=== PATIENT | female | born 1935 | race Two or more races ===

== ENCOUNTER → 2017-07-14 | Outpatient (CLI) | payer OTHER | END | disposition home or self-care (01) | LOC: NUCLEAR 11:00 | DX: I11.9 Hypertensive heart disease without heart failure (principal); R07.89 Other chest pain; I44.0 Atrioventricular block, first degree ==

== ENCOUNTER → 2017-08-30 | Outpatient (CLI) | payer OTHER | END | disposition home or self-care (01) | LOC: NUCLEAR 08-28 14:30 | DX: M81.0 Age-related osteoporosis without current pathological fracture (principal) ==

== ENCOUNTER 2018-07-23 09:45 | Inpatient (IN) | payer OTHER ==
[~2018-07-23] VITALS: Ht 160 cm; Wt 57.6 kg
[2018-07-23] MEDS ORDERED: PROTONIX40 M1 PO (13:59)
[2018-07-23] MEDS ORDERED: LOSARTAN-HCTZ1 EAC2 PO (14:00)
[2018-07-23] MEDS ORDERED: ZOCOR PO (14:00)
[2018-07-23] MEDS ORDERED: PEPCID20 MG PO (14:01)
[2018-07-23] MEDS ORDERED: NAMENDA10 MG PO (15:58)
== END 2018-07-30 12:26 | disposition home or self-care (01) | DRG 331 ==
LOC: SURH 09:45 → O/R 07-27 06:00 → SURH 07-27 06:00
PROVIDERS: ADMIT Colon & Rectal Surgery
PROC: 07TB4ZZ Resection of Mesenteric Lymphatic, Percutaneous Endoscopic Approach (ICD-10-PCS; 2018-07-27)
PROC: 0DR Gastrointestinal System, Replacement (ICD-10-PCS; 2018-07-27)
PROC: 0T9B70Z Drainage of Bladder with Drainage Device, Via Natural or Artificial Opening (ICD-10-PCS; 2018-07-27)
PROC: 0DTF4ZZ Resection of Right Large Intestine, Percutaneous Endoscopic Approach (ICD-10-PCS; principal; 2018-07-27 09:00)
DX: C18.2 Malignant neoplasm of ascending colon (principal); I10 Essential (primary) hypertension; E87.6 Hypokalemia; E83.42 Hypomagnesemia; E83.39 Other disorders of phosphorus metabolism; R59.0 Localized enlarged lymph nodes

== ENCOUNTER 2019-04-25 14:22 | Outpatient (CLI) | payer OTHER ==
[~2019-04-25 14:22] MED LIST: LOSARTAN-HCTZ1 EAC2 PO; NAMENDA10 MG PO; PEPCID20 MG PO; PROTONIX40 M1 PO; ZOCOR PO
== END 2019-04-25 14:27 | disposition home or self-care (01) ==
LOC: NUCLEAR 14:22
DX: I87.2 Venous insufficiency (chronic) (peripheral) (principal)

== ENCOUNTER 2019-11-08 11:30 | Outpatient (CLI) | payer OTHER | END 2019-11-08 11:32 | disposition home or self-care (01) | LOC: NUCLEAR 11:30 | PROVIDERS: ATTEND Internal Medicine Cardiovascular Disease | DX: I25.10 Atherosclerotic heart disease of native coronary artery without angina pectoris (principal); I51.5 Myocardial degeneration ==

== ENCOUNTER 2019-12-16 11:22 | Outpatient (CLI) | payer OTHER | END 2019-12-16 11:35 | disposition home or self-care (01) | LOC: NUCLEAR 11:22 | PROVIDERS: ATTEND Internal Medicine Cardiovascular Disease | DX: R94.31 Abnormal electrocardiogram [ECG] [EKG] (principal); I49.3 Ventricular premature depolarization; I11.9 Hypertensive heart disease without heart failure; I87.2 Venous insufficiency (chronic) (peripheral); R00.2 Palpitations; I25.10 Atherosclerotic heart disease of native coronary artery without angina pectoris ==

== ENCOUNTER 2020-08-07 11:41 | Outpatient (CLI) | payer OTHER | END 2020-08-07 11:50 | disposition home or self-care (01) | LOC: NUCLEAR 11:41 | PROVIDERS: ATTEND Internal Medicine Cardiovascular Disease | DX: I87.2 Venous insufficiency (chronic) (peripheral) (principal) ==

== ENCOUNTER 2020-09-22 07:37 | Outpatient (CLI) | payer OTHER | END 2020-09-22 07:39 | disposition home or self-care (01) | LOC: NUCLEAR 07:37 | PROVIDERS: ATTEND Internal Medicine Cardiovascular Disease | DX: I25.10 Atherosclerotic heart disease of native coronary artery without angina pectoris (principal); I25.84 Coronary atherosclerosis due to calcified coronary lesion; I11.9 Hypertensive heart disease without heart failure; R94.31 Abnormal electrocardiogram [ECG] [EKG] | CPT/HCPCS: 78452; 93017; A9500; J0153 ==

== ENCOUNTER 2020-09-28 08:59 | Outpatient (CLI) | payer OTHER | END 2020-09-28 14:39 | disposition home or self-care (01) | LOC: WOUND MED 08:59 | PROVIDERS: ATTEND Specialist | DX: L97.512 Non-pressure chronic ulcer of other part of right foot with fat layer exposed (principal); R60.0 Localized edema | CPT/HCPCS: 11042; G0463; A4554; A4930; A6212; A6216; A6266 ==

== ENCOUNTER 2020-10-05 10:03 | Outpatient (CLI) | payer OTHER | END 2020-10-05 12:00 | disposition home or self-care (01) | LOC: WOUND MED 10:03 | PROVIDERS: ATTEND Specialist | DX: L97.512 Non-pressure chronic ulcer of other part of right foot with fat layer exposed (principal); R60.0 Localized edema | CPT/HCPCS: 11042; A4554; A4930; A6212; A6216; A6266 ==

== ENCOUNTER 2020-10-13 11:25 | Outpatient (CLI) | payer OTHER | END 2020-10-13 12:00 | disposition home or self-care (01) | LOC: WOUND MED 11:25 | PROVIDERS: ATTEND Specialist | DX: L97.512 Non-pressure chronic ulcer of other part of right foot with fat layer exposed (principal); R60.0 Localized edema | CPT/HCPCS: G0463; A4554; A4930; A6216 ==

== ENCOUNTER 2022-08-11 07:23 | Outpatient (CLI) | payer OTHER | END 2022-08-11 11:50 | disposition home or self-care (01) | LOC: NUCLEAR 07:23 | PROVIDERS: ATTEND Specialist | DX: I82.409 Acute embolism and thrombosis of unspecified deep veins of unspecified lower extremity (principal) ==

== ENCOUNTER 2022-08-16 15:36 | Outpatient (CLI) | payer OTHER | END 2022-08-16 15:38 | disposition home or self-care (01) | LOC: NUCLEAR 15:36 | PROVIDERS: ATTEND Internal Medicine Cardiovascular Disease | DX: R07.89 Other chest pain (principal) ==

== ENCOUNTER → 2022-08-22 09:54 | Outpatient (CLI) | payer OTHER | END | disposition home or self-care (01) | LOC: LAB 09:54 | PROVIDERS: ATTEND Specialist | DX: D68.62 Lupus anticoagulant syndrome (principal); E72.12 Methylenetetrahydrofolate reductase deficiency; D68.2 Hereditary deficiency of other clotting factors ==

== ENCOUNTER 2022-08-30 08:03 | Outpatient (CLI) | payer OTHER | END 2022-08-30 08:04 | disposition home or self-care (01) | LOC: NUCLEAR 08:03 | PROVIDERS: ATTEND Internal Medicine Cardiovascular Disease | DX: I82.432 Acute embolism and thrombosis of left popliteal vein (principal) ==

== ENCOUNTER 2022-09-20 10:07 | Outpatient (CLI) | payer OTHER | END 2022-09-20 10:21 | disposition home or self-care (01) | LOC: LAB 10:07 | PROVIDERS: ATTEND Specialist | DX: I82.402 Acute embolism and thrombosis of unspecified deep veins of left lower extremity (principal); D68.61 Antiphospholipid syndrome; C18.2 Malignant neoplasm of ascending colon ==

== ENCOUNTER 2023-06-16 12:46 | Outpatient (CLI) | payer OTHER ==
[2023-06-16 13:51] LABS: HEMATOCRIT 40.5 % (36.0-45.00); HEMOGLOBIN 13.5 g/dL (12.0-15.00); MEAN CELL VOLUME 91.5 fL (80.00-100.00); MEAN CORPUSCULAR HEMOGLOBIN 30.5 pg (27.00-32.0); MEAN CORPUSCULAR HGB CONC 33.3 g/dl (32.0-36.0); PLATELET COUNT 167 K/uL (150-450); RED BLOOD COUNT 4.43 M/uL (4.00-6.00); RED CELL DISTRIBUTION WIDTH 14.9 % (11.5-14.5)
[2023-06-16 14:29] LABS: ALBUMIN 3.5 gm/dL (3.4-5.0); BILIRUBIN TOTAL 0.82 mg/dL (0.3-1.2); CALCIUM 8.8 mg/dL (8.5-10.1); CREATININE SERUM 0.71 mg/dL (0.55-1.02); GFR 77.69; GLOBULINA 3.1 G/DL (2.4-3.5); POTASSIUM 3.85 mEq/L (3.5-5.1); TOTAL PROTEIN 6.6 gm/dL (6.4-8.2)
== END 2023-06-16 12:48 | disposition home or self-care (01) ==
LOC: LAB 12:46
PROVIDERS: ATTEND Internal Medicine Cardiovascular Disease
DX: E11.9 Type 2 diabetes mellitus without complications (principal); I50.20 Unspecified systolic (congestive) heart failure

== ENCOUNTER 2023-06-19 15:21 | Outpatient (CLI) | payer OTHER ==
[2023-06-19 16:30] LABS: MYCOPLASMA PNEUMONIAE IGM NON REACTIVE (NO REACTIVE)
== END 2023-06-19 15:25 | disposition home or self-care (01) ==
LOC: LAB 15:21
PROVIDERS: ATTEND Specialist
DX: U07.1 COVID-19 (principal); J10.00 Influenza due to other identified influenza virus with unspecified type of pneumonia; J15.7 Pneumonia due to Mycoplasma pneumoniae

== ENCOUNTER 2023-07-13 08:01 | Outpatient (CLI) | payer OTHER | END 2023-07-13 08:03 | disposition home or self-care (01) | LOC: NUCLEAR 08:01 | PROVIDERS: ATTEND Specialist | DX: I80.3 Phlebitis and thrombophlebitis of lower extremities, unspecified (principal); D68.62 Lupus anticoagulant syndrome ==

== ENCOUNTER 2023-07-13 09:39 | Outpatient (CLI) | payer OTHER | END 2023-07-13 09:41 | disposition home or self-care (01) | LOC: LAB 09:39 | PROVIDERS: ATTEND Specialist | DX: I82.409 Acute embolism and thrombosis of unspecified deep veins of unspecified lower extremity (principal); L02.31 Cutaneous abscess of buttock ==

== ENCOUNTER 2023-07-14 13:35 | Emergency (ER) | payer OTHER ==
[~2023-07-14] VITALS: Ht 154.9 cm; Wt 49.9 kg
== END 2023-07-14 17:13 | disposition home or self-care (01) ==
LOC: ER 13:35
DX: R60.0 Localized edema (principal); I10 Essential (primary) hypertension; Z88.8 Allergy status to other drugs, medicaments and biological substances

== ENCOUNTER 2023-11-15 09:50 | Inpatient (IN) | payer OTHER ==
[~2023-11-15] VITALS: Ht 154.9 cm; Wt 45.4 kg
--- NOTE | 2023-11-15 10:00 | NUR ---
SE RECIBE PTE FEMENINA DE 88 AN[address]ERTA Y EN COMPANIA DE FAMILIARES QUIENES REFEIREN PTE PRECENTA SOB Y DOLOR DE CHAPO. PTE AL MOMENTO NO SE OBSERBA EN DISTRESS RESPIRATORIO. PTE SE MONITOREAN Y SE UBICA EN K1
[2023-11-15] MEDS ORDERED: LEVALBUTEROL HCL 1.25 MG/3 ML SOLUTION IH STA (10:26)
--- NOTE | 2023-11-15 10:36 | NUR ---
SE EDUCA PACIENTE SOBRE EL TX MEDICO Y ESTA REFIERE ENTENDER. SE CANALIZA Y SE CHRISTIANO EN S/L. SE DELFINO MUESTRAS DE LABORATORIOS Y SE ENVIAN. PENDIENTE A TERAPIAS, PLACA Y ORINA
[2023-11-15 11:16] LABS: HEMATOCRIT 33.5 % (36.0-45.00); HEMOGLOBIN 11.2 g/dL (12.0-15.00); MEAN CELL VOLUME 88.1 fL (80.00-100.00); MEAN CORPUSCULAR HEMOGLOBIN 29.4 pg (27.00-32.0); MEAN CORPUSCULAR HGB CONC 33.4 g/dl (32.0-36.0); PLATELET COUNT 533 K/uL (150-450); RED BLOOD COUNT 3.81 M/uL (4.00-6.00); RED CELL DISTRIBUTION WIDTH 14.7 % (11.5-14.5)
[2023-11-15 11:31] LABS: CALCIUM 8.9 mg/dL (8.5-10.1); CREATININE SERUM 0.62 mg/dL (0.55-1.02); GFR 90.63; POTASSIUM 4.15 mEq/L (3.5-5.1)
[2023-11-15 13:54] LABS: ABG PH 7.488 (7.35-7.45); ABG PO2 93.4 mmHg (80-100); ABG pCO2 39.2 mmHg (35-45)
[2023-11-15 13:55] LABS: BASE EXCESS 5.4 mmol/l; BICARBONATE 29.1 mmol/l (23-25); Tco2 30.3 mmol/l
[2023-11-15 13:56] LABS: allen test SATISFACTORY; o2 32 %; puncture site RADIAL RIGHT
[2023-11-15] MEDS ORDERED: CEFTRIAXONE SODIUM 2,000 MG VIAL IV SCH (16:57)
[2023-11-15] MEDS ORDERED: AZITHROMYCIN 500 MG in DEXTROSE 5 % IN WATER 250 ML IV SCH (17:00)
[2023-11-15] MEDS ORDERED: IRON FUM,PS/FOLIC/BCOMP,C NO.9 1 CAP CAPSULE PO SCH (17:00)
[2023-11-15] MEDS ORDERED: MEMANTINE HCL 10 MG TABLET PO SCH (17:00)
[2023-11-15] MEDS ORDERED: SIMVASTATIN 40 MG TABLET PO SCH (17:00)
--- NOTE | 2023-11-15 17:13 | NUR ---
SE CATETERIZA PTE BAJO MEDIDAS ASEPTICAS Y SE DAVON MUESTRA DE UA PENDIENTE.SE REALZIA CAMBIO DE PANAL.
[2023-11-15 17:15] LABS: URINE APPEARANCE Cloudy; URINE BILIRRUBIN Negative (NEGATIVE); URINE BLOOD Negative; URINE COLOR Yellow; URINE GLUCOSE Negative (NEGATIVE); URINE KETONE Negative (NEGATIVE); URINE LEUKOCYTE Moderate; URINE NITRATE Negative; URINE PROTEIN Trace (NEGATIVE); URINE UROBILINOGEN 0.2 E.U./dl
[2023-11-15] MEDS ORDERED: 0.9 % SODIUM CHLORIDE 1,000 ML IV SCH (17:15)
[2023-11-15 17:19] LABS: URINE BACTERIA 200.3 uL (0.0-1933); URINE EPITHELIAL CELLS 3.8 uL (0.0-38.8); URINE RBC 7.6 uL (0.0-20.8); URINE WBC 308.4 uL (0.0-23.2)
[2023-11-15 17:58] LABS: URINE CAST 1.37 uL (0.0-1.40)
[2023-11-15 18:00] LABS: URINE YEAST NEGATIVE /hpf
[2023-11-15] MEDS ORDERED: FAMOTIDINE/PF 20 MG/2 ML VIAL IV SCH (21:00)
[2023-11-15] MEDS ORDERED: FUROsemide 20 MG/2 ML VIAL IV SCH (21:00)
[2023-11-16 05:29] LABS: HEMATOCRIT 33.5 % (36.0-45.00); MEAN CELL VOLUME 87.8 fL (80.00-100.00); MEAN CORPUSCULAR HGB CONC 33.3 g/dl (32.0-36.0); PLATELET COUNT 501 K/uL (150-450); RED BLOOD COUNT 3.81 M/uL (4.00-6.00); RED CELL DISTRIBUTION WIDTH 15.4 % (11.5-14.5)
[2023-11-16 05:55] LABS: ALBUMIN 1.7 gm/dL (3.4-5.0); BILIRUBIN TOTAL 0.42 mg/dL (0.3-1.2); CALCIUM 8.3 mg/dL (8.5-10.1); GFR 159.46; GLOBULINA 4.1 G/DL (2.4-3.5); MAGNESIUM 2.3 mg/dL (1.8-2.4); PHOSPHOROUS 3.8 mg/dL (2.5-4.9); POTASSIUM 4.56 mEq/L (3.5-5.1); TOTAL PROTEIN 5.8 gm/dL (6.4-8.2)
[2023-11-16 05:57] LABS: CREATININE SERUM 0.38 mg/dL (0.55-1.02)
[2023-11-16 06:26] LABS: HEMOGLOBIN 11.2 g/dL (12.0-15.00); MEAN CORPUSCULAR HEMOGLOBIN 29.3 pg (27.00-32.0)
[2023-11-16] MEDS ORDERED: ENOXAPARIN SODIUM 40 MG/0.4 ML SYRINGE SUBCUTANEO SCH (09:00)
[2023-11-16] MEDS ORDERED: METOPROLOL SUCCINATE 50 MG TAB.SR.24H PO SCH (09:00)
[2023-11-17] MEDS ORDERED: IRON/V.C/V.B12/FOLIC A/VIT. E 1 CAPL CAPLET PO SCH (09:00)
[2023-11-17] MEDS ORDERED: AMINO ACIDS/PROTEIN HYDROLYS 30 ML BLIST.PACK PO SCH (09:00)
[2023-11-17 18:08] LABS: PLEURAL FLUID APPEARANCE CLOUDY; PLEURAL FLUID COLOR YELLOW
[2023-11-17 18:17] LABS: TP PLEURAL FLUID 3.7 g/dl
[2023-11-17 18:46] LABS: MONONUCLEAR 19 %; POLYMORPHONUCLEAR 81 %
[2023-11-17] MEDS ORDERED: LORazepam 2 MG/ML VIAL IV ONE (22:30)
[2023-11-18 07:33] LABS: HEMATOCRIT 30.7 % (36.0-45.00); HEMOGLOBIN 10.4 g/dL (12.0-15.00); MEAN CELL VOLUME 88.3 fL (80.00-100.00); PLATELET COUNT 436 K/uL (150-450); RED BLOOD COUNT 3.48 M/uL (4.00-6.00); RED CELL DISTRIBUTION WIDTH 15.4 % (11.5-14.5)
[2023-11-18 07:53] LABS: ALBUMIN 1.6 gm/dL (3.4-5.0); BILIRUBIN TOTAL 0.25 mg/dL (0.3-1.2); CREATININE SERUM 0.36 mg/dL (0.55-1.02); GFR 169.72; GLOBULINA 3.4 G/DL (2.4-3.5); MAGNESIUM 1.9 mg/dL (1.8-2.4); PHOSPHOROUS 3.1 mg/dL (2.5-4.9); POTASSIUM 3.1 mEq/L (3.5-5.1)
[2023-11-18] MEDS ORDERED: POTASSIUM BICARBONATE/CIT AC 25 MEQ TABLET.EFF PO SCH (13:48)
[2023-11-18] MEDS ORDERED: POTASSIUM CHLORIDE 20MEQ/100ML H2O PB IV NR (14:00)
[2023-11-18 19:37] LABS: TSH 0.563 uIU/mL (0.358-3.74)
[2023-11-19 07:46] LABS: HEMATOCRIT 28.6 % (36.0-45.00); HEMOGLOBIN 9.6 g/dL (12.0-15.00); MEAN CELL VOLUME 88.1 fL (80.00-100.00); MEAN CORPUSCULAR HEMOGLOBIN 29.6 pg (27.00-32.0); MEAN CORPUSCULAR HGB CONC 33.6 g/dl (32.0-36.0); PLATELET COUNT 423 K/uL (150-450); RED BLOOD COUNT 3.25 M/uL (4.00-6.00); RED CELL DISTRIBUTION WIDTH 15.1 % (11.5-14.5)
[2023-11-19 07:48] LABS: ALBUMIN 1.6 gm/dL (3.4-5.0); BILIRUBIN TOTAL 0.23 mg/dL (0.3-1.2); CALCIUM 8.1 mg/dL (8.5-10.1); GFR 217.82; GLOBULINA 3.2 G/DL (2.4-3.5); POTASSIUM 3.42 mEq/L (3.5-5.1); TOTAL PROTEIN 4.8 gm/dL (6.4-8.2)
[2023-11-19 07:57] LABS: CREATININE SERUM 0.29 mg/dL (0.55-1.02)
[2023-11-19] MEDS ORDERED: POTASSIUM BICARBONATE/CIT AC 25 MEQ TABLET.EFF PO NR (11:30)
[2023-11-19] MEDS ORDERED: LOSARTAN POTASSIUM 25 MG TABLET PO SCH (20:14)
[2023-11-20] MEDS ORDERED: METROnidazole 500 MG TABLET PO SCH (17:00)
[2023-11-21 05:11] LABS: MEAN CELL VOLUME 87.8 fL (80.00-100.00); MEAN CORPUSCULAR HGB CONC 33.6 g/dl (32.0-36.0); PLATELET COUNT 397 K/uL (150-450); RED BLOOD COUNT 3.64 M/uL (4.00-6.00)
[2023-11-21 05:28] LABS: HEMOGLOBIN 10.7 g/dL (12.0-15.00); MEAN CORPUSCULAR HEMOGLOBIN 29.3 pg (27.00-32.0)
[2023-11-21 05:37] LABS: ALBUMIN 1.8 gm/dL (3.4-5.0); BILIRUBIN TOTAL 0.25 mg/dL (0.3-1.2); CALCIUM 8.7 mg/dL (8.5-10.1); CREATININE SERUM 0.4 mg/dL (0.55-1.02); GFR 150.29; GLOBULINA 3.6 G/DL (2.4-3.5); MAGNESIUM 2.1 mg/dL (1.8-2.4); PHOSPHOROUS 2.9 mg/dL (2.5-4.9); POTASSIUM 4.07 mEq/L (3.5-5.1); TOTAL PROTEIN 5.4 gm/dL (6.4-8.2)
[2023-11-21] MEDS ORDERED: LOSARTAN POTASSIUM 25 MG TABLET PO STA (17:16)
[2023-11-22 06:12] LABS: ABG PH 7.477 (7.35-7.45); ABG PO2 76.6 mmHg (80-100); ABG pCO2 43.8 mmHg (35-45); BASE EXCESS 7.2 mmol/l; BICARBONATE 31.7 mmol/l (23-25); SaO2 96.4 %; Tco2 33.1 mmol/l; allen test SATISFACTORY; o2 21 %; puncture site RADIAL RIGHT
[2023-11-22 07:07] LABS: ANGIOTENSIN CONVERTING ENZYME 31 U/L (14-82)
[2023-11-22] MEDS ORDERED: LOSARTAN POTASSIUM 50 MG TABLET PO SCH ×2 (09:00→17:00)
[2023-11-22] MEDS ORDERED: AMLODIPINE BESYLATE 5 MG TABLET PO SCH (13:53)
[2023-11-22] MEDS ORDERED: METOPROLOL SUCCINATE 50 MG TAB.SR.24H PO STA (13:56)
[2023-11-22] MEDS ORDERED: FAMOtidine 20 MG TABLET PO SCH (21:00)
[2023-11-22 21:05] LABS: anti MPO AB < 0.2 units (0.0-0.9); anti pr3 < 0.2 units (0.0-0.9); c anca <1:20 titer (Neg:<1:20); p anca <1:20 titer (Neg:<1:20)
[2023-11-23] MEDS ORDERED: METOPROLOL SUCCINATE 100 MG TAB.SR.24H PO SCH (09:00)
[2023-11-23] MEDS ORDERED: AMLODIPINE BESYLATE 5 MG TABLET PO SCH (16:27)
[2023-11-25] MEDS ORDERED: LACTOBACILLUS ACIDOPHILUS 1 CAP CAP PO SCH (17:00)
[2023-11-26 07:55] LABS: ALBUMIN 1.8 gm/dL (3.4-5.0); BILIRUBIN TOTAL 0.28 mg/dL (0.3-1.2); CALCIUM 7.5 mg/dL (8.5-10.1); GLOBULINA 2.9 G/DL (2.4-3.5); MAGNESIUM 1.8 mg/dL (1.8-2.4); TOTAL PROTEIN 4.7 gm/dL (6.4-8.2)
[2023-11-26 08:02] LABS: HEMATOCRIT 31.4 % (36.0-45.00); HEMOGLOBIN 10.8 g/dL (12.0-15.00); MEAN CELL VOLUME 87.7 fL (80.00-100.00); MEAN CORPUSCULAR HEMOGLOBIN 30.3 pg (27.00-32.0); MEAN CORPUSCULAR HGB CONC 34.5 g/dl (32.0-36.0); PLATELET COUNT 330 K/uL (150-450); RED BLOOD COUNT 3.58 M/uL (4.00-6.00); RED CELL DISTRIBUTION WIDTH 16.5 % (11.5-14.5)
[2023-11-26 09:05] LABS: GFR 247.08
[2023-11-26 09:06] LABS: POTASSIUM 2.83 mEq/L (3.5-5.1)
[2023-11-26] MEDS ORDERED: POTASSIUM CHLORIDE IN WATER 40 MEQ/100 ML PIGGYBAG IV SCH (09:14)
[2023-11-26 09:15] LABS: CREATININE SERUM 0.26 mg/dL (0.55-1.02)
[2023-11-27 06:52] LABS: CALCIUM 7.8 mg/dL (8.5-10.1); GFR 226.83; MAGNESIUM 1.9 mg/dL (1.8-2.4); POTASSIUM 3.15 mEq/L (3.5-5.1)
[2023-11-27 06:53] LABS: CREATININE SERUM 0.28 mg/dL (0.55-1.02)
[2023-11-27] MEDS ORDERED: POTASSIUM CHLORIDE IN WATER 100 ML IV NR (10:45)
[2023-11-27] MEDS ORDERED: POTASSIUM BICARBONATE/CIT AC 25 MEQ TABLET.EFF PO SCH (17:00)
[2023-11-29 08:09] LABS: HEMATOCRIT 32.4 % (36.0-45.00); HEMOGLOBIN 10.7 g/dL (12.0-15.00); MEAN CELL VOLUME 89.2 fL (80.00-100.00); MEAN CORPUSCULAR HEMOGLOBIN 29.5 pg (27.00-32.0); MEAN CORPUSCULAR HGB CONC 33.1 g/dl (32.0-36.0); RED BLOOD COUNT 3.63 M/uL (4.00-6.00); RED CELL DISTRIBUTION WIDTH 17.4 % (11.5-14.5)
[2023-11-29 08:35] LABS: PLATELET COUNT 305 K/uL (150-450)
[2023-11-29 08:42] LABS: ALBUMIN 1.9 gm/dL (3.4-5.0); BILIRUBIN TOTAL 0.27 mg/dL (0.3-1.2); GFR 226.83; GLOBULINA 3.2 G/DL (2.4-3.5); MAGNESIUM 1.9 mg/dL (1.8-2.4); PHOSPHOROUS 2.4 mg/dL (2.5-4.9); POTASSIUM 3.81 mEq/L (3.5-5.1); TOTAL PROTEIN 5.1 gm/dL (6.4-8.2)
[2023-11-29 08:47] LABS: CREATININE SERUM 0.28 mg/dL (0.55-1.02)
[2023-11-29] MEDS ORDERED: SODIUM CHLORIDE 0.45 % 1,000 ML IV SCH (17:45)
[2023-11-29] MEDS ORDERED: PANTOPRAZOLE SODIUM 40 MG TABLET.DR PO SCH (17:47)
[2023-11-30] MEDS ORDERED: ENALAPRILAT DIHYDRATE 1.25 MG/ML VIAL IV PRN (02:15)
[2023-11-30] MEDS ORDERED: HYDROCHLOROTHIAZIDE 12.5 MG CAPSULE PO SCH (16:36)
[2023-11-30] MEDS ORDERED: AMLODIPINE BESYLATE 5 MG TABLET PO SCH (17:00)
[2023-12-01] MEDS ORDERED: AMLODIPINE BESYLATE 10 MG TABLET PO SCH (09:00)
[2023-12-02 08:10] LABS: ALBUMIN 1.8 gm/dL (3.4-5.0); BILIRUBIN TOTAL 0.44 mg/dL (0.3-1.2); CALCIUM 8.3 mg/dL (8.5-10.1); CREATININE SERUM 0.84 mg/dL (0.55-1.02); GFR 63.84; GLOBULINA 3.3 G/DL (2.4-3.5); MAGNESIUM 1.9 mg/dL (1.8-2.4); PHOSPHOROUS 3.7 mg/dL (2.5-4.9); POTASSIUM 4.07 mEq/L (3.5-5.1); TOTAL PROTEIN 5.1 gm/dL (6.4-8.2)
[2023-12-02 12:35] LABS: HEMATOCRIT 35.3 % (36.0-45.00); HEMOGLOBIN 11.8 g/dL (12.0-15.00); MEAN CELL VOLUME 88.2 fL (80.00-100.00); MEAN CORPUSCULAR HEMOGLOBIN 29.5 pg (27.00-32.0); MEAN CORPUSCULAR HGB CONC 33.4 g/dl (32.0-36.0); PLATELET COUNT 270 K/uL (150-450); RED CELL DISTRIBUTION WIDTH 17.8 % (11.5-14.5)
[2023-12-03 15:40] LABS: INR 1.14; PARTIAL THROMBOPLASTIN TIME 27.4 SECONDS (22.0-34.0); PROTHROMBIN TIME 11.9 SECONDS (9.0-11.5)
[2023-12-05 08:46] LABS: HEMATOCRIT 34.6 % (36.0-45.00); HEMOGLOBIN 11.7 g/dL (12.0-15.00); MEAN CELL VOLUME 87.5 fL (80.00-100.00); MEAN CORPUSCULAR HEMOGLOBIN 29.6 pg (27.00-32.0); MEAN CORPUSCULAR HGB CONC 33.9 g/dl (32.0-36.0); PLATELET COUNT 231 K/uL (150-450); RED BLOOD COUNT 3.96 M/uL (4.00-6.00); RED CELL DISTRIBUTION WIDTH 17.8 % (11.5-14.5)
[2023-12-05] MEDS ORDERED: ALTEPLASE 2 MG VIAL SPEPROC SCH (09:00)
[2023-12-05] MEDS ORDERED: DORNASE ALFA 1 MG/ML AMPUL.NEB IH SCH (09:00)
[2023-12-05 09:20] LABS: BILIRUBIN TOTAL 0.35 mg/dL (0.3-1.2); CALCIUM 8.3 mg/dL (8.5-10.1); CREATININE SERUM 2.59 mg/dL (0.55-1.02); GFR 17.41; GLOBULINA 3.4 G/DL (2.4-3.5); MAGNESIUM 1.8 mg/dL (1.8-2.4); PHOSPHOROUS 2.9 mg/dL (2.5-4.9); TOTAL PROTEIN 5.4 gm/dL (6.4-8.2)
[2023-12-05 09:33] LABS: POTASSIUM 2.53 mEq/L (3.5-5.1)
[2023-12-05] MEDS ORDERED: RINGERS SOLUTION,LACTATED 1,000 ML IV SCH (11:00)
[2023-12-05] MEDS ORDERED: 0.9 % SODIUM CHLORIDE 1,000 ML IV SCH (11:00)
[2023-12-05] MEDS ORDERED: POTASSIUM CHLORIDE IN WATER 100 ML IV SCH (13:00)
[2023-12-05] MEDS ORDERED: POTASSIUM BICARBONATE/CIT AC 25 MEQ TABLET.EFF PO SCH (13:00)
[2023-12-06 07:45] LABS: HEMATOCRIT 36.3 % (36.0-45.00); HEMOGLOBIN 12.3 g/dL (12.0-15.00); MEAN CELL VOLUME 87.1 fL (80.00-100.00); MEAN CORPUSCULAR HEMOGLOBIN 29.5 pg (27.00-32.0); MEAN CORPUSCULAR HGB CONC 33.8 g/dl (32.0-36.0); PLATELET COUNT 259 K/uL (150-450); RED BLOOD COUNT 4.16 M/uL (4.00-6.00); RED CELL DISTRIBUTION WIDTH 17.4 % (11.5-14.5)
[2023-12-06 08:35] LABS: ALBUMIN 2.2 gm/dL (3.4-5.0); BILIRUBIN TOTAL 0.54 mg/dL (0.3-1.2); CALCIUM 8.5 mg/dL (8.5-10.1); CREATININE SERUM 3.61 mg/dL (0.55-1.02); GFR 11.87; GLOBULINA 3.6 G/DL (2.4-3.5); MAGNESIUM 1.9 mg/dL (1.8-2.4); POTASSIUM 3.77 mEq/L (3.5-5.1); TOTAL PROTEIN 5.8 gm/dL (6.4-8.2)
[2023-12-06 23:08] LABS: PH,URINE 5.5 (5.0-8.0); URINE APPEARANCE Cloudy; URINE BILIRRUBIN Negative (NEGATIVE); URINE BLOOD Large; URINE COLOR Orange; URINE GLUCOSE Negative (NEGATIVE); URINE KETONE Trace (NEGATIVE); URINE LEUKOCYTE Moderate; URINE NITRATE Negative; URINE PROTEIN 30 (NEGATIVE); URINE UROBILINOGEN 0.2 E.U./dl
[2023-12-06 23:12] LABS: URINE BACTERIA 521.5 uL (0.0-1933); URINE EPITHELIAL CELLS 7.5 uL (0.0-38.8); URINE RBC 10284.5 uL (0.0-20.8); URINE WBC 287.1 uL (0.0-23.2)
[2023-12-06 23:26] LABS: URINE CAST 0.91 uL (0.0-1.40)
[2023-12-07 08:21] LABS: HEMATOCRIT 32.1 % (36.0-45.00); MEAN CELL VOLUME 86.5 fL (80.00-100.00); MEAN CORPUSCULAR HEMOGLOBIN 29.7 pg (27.00-32.0); MEAN CORPUSCULAR HGB CONC 34.3 g/dl (32.0-36.0); PLATELET COUNT 235 K/uL (150-450); RED BLOOD COUNT 3.71 M/uL (4.00-6.00); RED CELL DISTRIBUTION WIDTH 18.3 % (11.5-14.5)
[2023-12-07] MEDS ORDERED: ENOXAPARIN SODIUM 30 MG/0.3 ML SYRINGE SUBCUTANEO SCH (09:00)
[2023-12-07] MEDS ORDERED: LORazepam 2 MG/ML VIAL IV ONE (09:00)
[2023-12-07 09:27] LABS: CREATININE SERUM 0.94 mg/dL (0.55-1.02); GFR 56.07; POTASSIUM 3.31 mEq/L (3.5-5.1)
[2023-12-07] MEDS ORDERED: LORazepam 2 MG/ML VIAL ONE (09:45)
[2023-12-07] MEDS ORDERED: POTASSIUM BICARBONATE/CIT AC 25 MEQ TABLET.EFF PO SCH (13:00)
[2023-12-08] MEDS ORDERED: METOPROLOL SUCCINATE 25 MG TAB.SR.24H PO SCH (10:37)
[2023-12-09 05:10] LABS: HEMATOCRIT 35.4 % (36.0-45.00); HEMOGLOBIN 11.9 g/dL (12.0-15.00); MEAN CELL VOLUME 88.2 fL (80.00-100.00); MEAN CORPUSCULAR HEMOGLOBIN 29.8 pg (27.00-32.0); MEAN CORPUSCULAR HGB CONC 33.8 g/dl (32.0-36.0); PLATELET COUNT 272 K/uL (150-450); RED BLOOD COUNT 4.01 M/uL (4.00-6.00); RED CELL DISTRIBUTION WIDTH 17.9 % (11.5-14.5)
[2023-12-09 07:54] LABS: ALBUMIN 1.8 gm/dL (3.4-5.0); ALBUMIN 1.9 gm/dL (3.4-5.0); BILIRUBIN TOTAL 0.48 mg/dL (0.3-1.2); CALCIUM 8.4 mg/dL (8.5-10.1); GLOBULINA 3.2 G/DL (2.4-3.5); MAGNESIUM 1.5 mg/dL (1.8-2.4); POTASSIUM 3.62 mEq/L (3.5-5.1); POTASSIUM 4.28 mEq/L (3.5-5.1)
[2023-12-09 09:46] LABS: GFR 432.66
[2023-12-09 09:47] LABS: CREATININE SERUM 0.16 mg/dL (0.55-1.02); PHOSPHOROUS 1.9 mg/dL (2.5-4.9)
[2023-12-09 09:48] LABS: GFR 377.69
[2023-12-09 09:49] LABS: CREATININE SERUM 0.18 mg/dL (0.55-1.02); PHOSPHOROUS 1.6 mg/dL (2.5-4.9)
[2023-12-09] MEDS ORDERED: POTASSIUM PHOS,M-BASIC-D-BASIC 15 MM in 0.9 % SODIUM CHLORIDE 250 ML IV NR (10:30)
[2023-12-09] MEDS ORDERED: DEXTROSE 5 %-0.45 % SOD CHLORD 1,000 ML IV SCH (13:00)
[2023-12-09] MEDS ORDERED: NAPH,MB-DB/K PH,MBDB 1 PKT PACKET PO SCH (13:54)
[2023-12-09] MEDS ORDERED: METOPROLOL SUCCINATE 50 MG TAB.SR.24H PO STA (13:54)
[2023-12-09] MEDS ORDERED: MAGNESIUM SULFATE IN WATER 50 ML IV NR (13:55)
[2023-12-10] MEDS ORDERED: METOPROLOL SUCCINATE 100 MG TAB.SR.24H PO SCH (09:00)
[2023-12-10] MEDS ORDERED: AMLODIPINE BESYLATE 5 MG TABLET PO SCH (14:44)
[2023-12-11 06:37] LABS: HEMATOCRIT 30.7 % (36.0-45.00); HEMOGLOBIN 10.6 g/dL (12.0-15.00); MEAN CELL VOLUME 86.6 fL (80.00-100.00); MEAN CORPUSCULAR HEMOGLOBIN 29.7 pg (27.00-32.0); MEAN CORPUSCULAR HGB CONC 34.3 g/dl (32.0-36.0); PLATELET COUNT 244 K/uL (150-450); RED BLOOD COUNT 3.55 M/uL (4.00-6.00); RED CELL DISTRIBUTION WIDTH 17.9 % (11.5-14.5)
[2023-12-11 07:12] LABS: ALBUMIN 1.7 gm/dL (3.4-5.0); BILIRUBIN TOTAL 0.28 mg/dL (0.3-1.2); CALCIUM 7.8 mg/dL (8.5-10.1); GLOBULINA 2.7 G/DL (2.4-3.5); MAGNESIUM 1.5 mg/dL (1.8-2.4); POTASSIUM 3.03 mEq/L (3.5-5.1); TOTAL PROTEIN 4.4 gm/dL (6.4-8.2)
[2023-12-11 08:08] LABS: CREATININE SERUM 0.25 mg/dL (0.55-1.02); GFR 258.52
[2023-12-11 08:09] LABS: PHOSPHOROUS 1.9 mg/dL (2.5-4.9)
[2023-12-11] MEDS ORDERED: POTASSIUM BICARBONATE/CIT AC 25 MEQ TABLET.EFF PO SCH (09:00)
[2023-12-11] MEDS ORDERED: POTASSIUM PHOS,M-BASIC-D-BASIC 3 MM/ML VIAL IV SCH (09:00)
[2023-12-11] MEDS ORDERED: MAGNESIUM SULFATE IN WATER 4 GM/100 ML PIGGYBACK IV STA (09:55)
[2023-12-11] MEDS ORDERED: POTASSIUM CHLORIDE IN WATER 100 ML IV NR (10:00)
[2023-12-11] MEDS ORDERED: RINGERS SOLUTION,LACTATED 1,000 ML IV SCH (16:15)
[2023-12-11] MEDS ORDERED: MAGNESIUM SULFATE IN WATER 2 GM/50 ML PIGGYBAG IV NR (16:15)
[2023-12-11] MEDS ORDERED: CALCIUM CARBONATE/VITAMIN D3 1 TAB TABLET PO SCH (17:00)
[2023-12-12] MEDS ORDERED: MAGNESIUM CHLORIDE 70 MG TABLET.DR PO SCH (17:00)
[2023-12-12] MEDS ORDERED: NAPH,MB-DB/K PH,MBDB 1 PKT PACKET PO SCH (17:00)
[2023-12-13 09:00] LABS: HEMATOCRIT 32.4 % (36.0-45.00); MEAN CELL VOLUME 87.3 fL (80.00-100.00); MEAN CORPUSCULAR HEMOGLOBIN 29.7 pg (27.00-32.0); PLATELET COUNT 253 K/uL (150-450); RED BLOOD COUNT 3.71 M/uL (4.00-6.00); RED CELL DISTRIBUTION WIDTH 17.8 % (11.5-14.5)
[2023-12-13 09:42] LABS: ALKALINE PHOSPHATASE 54 U/L (50-136); ALT/SGPT 10 U/L (12-78); ANION GAP 7 (10.0-20.0); AST/SGOT 22 U/L (15-37); BILIRUBIN TOTAL 0.37 mg/dL (0.3-1.2); BLOOD UREA NITROGEN 6 mg/dL (7-18); CALCIUM 8.1 mg/dL (8.5-10.1); CARBON DIOXIDE 34 mEq/L (21-32); CHLORIDE 104 mmol/L (98-107); GLUCOSE FASTING 72 mg/dL (65-100); OSMOLALITY SERUM 279 MOSM/KG (275-295); PHOSPHOROUS 2.3 mg/dL (2.5-4.9); POTASSIUM 3.45 mEq/L (3.5-5.1); SODIUM 142 mmol/L (136-145)
[2023-12-13 09:46] LABS: BUN CREA RATIO 40 (7.0-25.0); CREATININE SERUM < 0.15 mg/dL (0.55-1.02); GFR 466.16
[2023-12-13] MEDS ORDERED: POTASSIUM PHOS,M-BASIC-D-BASIC 15 MM in 0.9 % SODIUM CHLORIDE 250 ML IV NR (12:54)
[2023-12-13] MEDS ORDERED: POTASSIUM BICARBONATE/CIT AC 25 MEQ TABLET.EFF PO SCH (17:00)
[2023-12-14] MEDS ORDERED: AMLODIPINE BESYLATE 2.5 MG TABLET PO SCH (10:54)
[2023-12-15 06:15] LABS: HEMATOCRIT 31.2 % (36.0-45.00); HEMOGLOBIN 10.6 g/dL (12.0-15.00); MEAN CELL VOLUME 87.8 fL (80.00-100.00); MEAN CORPUSCULAR HEMOGLOBIN 29.8 pg (27.00-32.0); MEAN CORPUSCULAR HGB CONC 33.9 g/dl (32.0-36.0); PLATELET COUNT 238 K/uL (150-450); RED BLOOD COUNT 3.55 M/uL (4.00-6.00)
[2023-12-15 06:49] LABS: ALBUMIN 1.8 gm/dL (3.4-5.0); BILIRUBIN TOTAL 0.35 mg/dL (0.3-1.2); CALCIUM 8.4 mg/dL (8.5-10.1); GFR 432.66; MAGNESIUM 1.7 mg/dL (1.8-2.4); PHOSPHOROUS 2.7 mg/dL (2.5-4.9); POTASSIUM 3.94 mEq/L (3.5-5.1); TOTAL PROTEIN 4.8 gm/dL (6.4-8.2)
[2023-12-15 06:55] LABS: CREATININE SERUM 0.16 mg/dL (0.55-1.02)
[2023-12-15] MEDS ORDERED: SODIUM CHLORIDE 0.45 % 1,000 ML IV SCH (09:49)
[2023-12-16] MEDS ORDERED: AMLODIPINE BESYLATE 2.5 MG TABLET PO STA (13:27)
[2023-12-17] MEDS ORDERED: AMLODIPINE BESYLATE 5 MG TABLET PO SCH (09:00)
[2023-12-17 11:55] LABS: HEMATOCRIT 32.8 % (36.0-45.00); MEAN CELL VOLUME 87.9 fL (80.00-100.00); MEAN CORPUSCULAR HEMOGLOBIN 29.4 pg (27.00-32.0); MEAN CORPUSCULAR HGB CONC 33.5 g/dl (32.0-36.0); PLATELET COUNT 250 K/uL (150-450); RED BLOOD COUNT 3.73 M/uL (4.00-6.00); RED CELL DISTRIBUTION WIDTH 18.1 % (11.5-14.5)
[2023-12-17 12:24] LABS: BILIRUBIN TOTAL 0.28 mg/dL (0.3-1.2); CALCIUM 8.1 mg/dL (8.5-10.1); CREATININE SERUM 0.26 mg/dL (0.55-1.02); GFR 247.08; GLOBULINA 2.8 G/DL (2.4-3.5); MAGNESIUM 1.7 mg/dL (1.8-2.4); PHOSPHOROUS 2.3 mg/dL (2.5-4.9); POTASSIUM 3.48 mEq/L (3.5-5.1); TOTAL PROTEIN 4.8 gm/dL (6.4-8.2)
[2023-12-17] MEDS ORDERED: MAGNESIUM SULFATE IN WATER 50 ML IV STA (13:23)
[2023-12-17] MEDS ORDERED: POTASSIUM BICARBONATE/CIT AC 25 MEQ TABLET.EFF PO NR (13:30)
[2023-12-17] MEDS ORDERED: POTASSIUM PHOS,M-BASIC-D-BASIC 15 MM in 0.9 % SODIUM CHLORIDE 250 ML IV ONE (16:00)
[2023-12-19 08:54] LABS: HEMOGLOBIN 11.8 g/dL (12.0-15.00); MEAN CELL VOLUME 88.7 fL (80.00-100.00); MEAN CORPUSCULAR HGB CONC 33.9 g/dl (32.0-36.0); PLATELET COUNT 290 K/uL (150-450); RED BLOOD COUNT 3.94 M/uL (4.00-6.00); RED CELL DISTRIBUTION WIDTH 18.6 % (11.5-14.5)
[2023-12-19 09:29] LABS: ALBUMIN 2.2 gm/dL (3.4-5.0); BILIRUBIN TOTAL 0.32 mg/dL (0.3-1.2); CALCIUM 8.6 mg/dL (8.5-10.1); CREATININE SERUM 0.39 mg/dL (0.55-1.02); GFR 154.75; GLOBULINA 3.2 G/DL (2.4-3.5); MAGNESIUM 2.1 mg/dL (1.8-2.4); PHOSPHOROUS 2.7 mg/dL (2.5-4.9); POTASSIUM 4.75 mEq/L (3.5-5.1); TOTAL PROTEIN 5.4 gm/dL (6.4-8.2)
[2023-12-19] MEDS ORDERED: AMLODIPINE BESYLATE 5 MG TABLET PO SCH (15:03)
[2023-12-20] MEDS ORDERED: MOXIFLOXACIN H400 MG PO (12:04)
[2023-12-20] MEDS ORDERED: LIPITOR20 MG PO (12:04)
[2023-12-20] MEDS ORDERED: METRONIDAZOLE500 MG PO (12:05)
[2023-12-20] MEDS ORDERED: INTESTINEX680 M2 PO (12:05)
[2023-12-20] MEDS ORDERED: TOPROL XL100 M1 PO (12:06)
[2023-12-20] MEDS ORDERED: AMLODIPINE BESYL5 MG PO (12:06)
[2023-12-20] MEDS ORDERED: INTEGRA PLUS C1 EACH PO (12:06)
[2023-12-20] MEDS ORDERED: MEMANTINE HCL10 MG PO (12:07)
[2023-12-20] MEDS ORDERED: VITAMIN B-121000 MC4 PO (12:08)
== END 2023-12-20 17:18 | disposition home or self-care (01) | DRG 186 ==
LOC: ER 09:50 → MEDI 17:54 → SEC-K 17:54 → MEDI 18:04 → MEDJ 12-19 13:22
PROVIDERS: General Practice; Internal Medicine; Internal Medicine Nephrology; Radiology Vascular & Interventional Radiology; ADMIT Internal Medicine; ATTEND Internal Medicine
PROC: BW24ZZZ Computerized Tomography (CT Scan) of Chest and Abdomen (ICD-10-PCS; 2023-11-15)
PROC: 0W9B3ZX Drainage of Left Pleural Cavity, Percutaneous Approach, Diagnostic (ICD-10-PCS; principal; 2023-11-17)
PROC: 0W9B30Z Drainage of Left Pleural Cavity with Drainage Device, Percutaneous Approach (ICD-10-PCS; 2023-11-17)
PROC: BW24ZZZ Computerized Tomography (CT Scan) of Chest and Abdomen (ICD-10-PCS; 2023-11-19)
PROC: BW24ZZZ Computerized Tomography (CT Scan) of Chest and Abdomen (ICD-10-PCS; 2023-11-24)
PROC: BW24ZZZ Computerized Tomography (CT Scan) of Chest and Abdomen (ICD-10-PCS; 2023-11-29)
PROC: 0B9L3ZX Drainage of Left Lung, Percutaneous Approach, Diagnostic (ICD-10-PCS; 2023-11-30)
PROC: 0BBL3ZX Excision of Left Lung, Percutaneous Approach, Diagnostic (ICD-10-PCS; 2023-11-30)
PROC: BT4JZZZ Ultrasonography of Kidneys and Bladder (ICD-10-PCS; 2023-12-05)
PROC: BW21ZZZ Computerized Tomography (CT Scan) of Abdomen and Pelvis (ICD-10-PCS; 2023-12-06)
PROC: BW24ZZZ Computerized Tomography (CT Scan) of Chest and Abdomen (ICD-10-PCS; 2023-12-08)
DX: J90 Pleural effusion, not elsewhere classified (principal); J69.0 Pneumonitis due to inhalation of food and vomit; J80 Acute respiratory distress syndrome; J86.9 Pyothorax without fistula; J94.8 Other specified pleural conditions; C34.92 Malignant neoplasm of unspecified part of left bronchus or lung; N17.9 Acute kidney failure, unspecified; E87.3 Alkalosis; E87.0 Hyperosmolality and hypernatremia; J98.19 Other pulmonary collapse; F03.90 Unspecified dementia, unspecified severity, without behavioral disturbance, psychotic disturbance, mood disturbance, and anxiety; D64.9 Anemia, unspecified; D86.9 Sarcoidosis, unspecified; E03.9 Hypothyroidism, unspecified; R91.8 Other nonspecific abnormal finding of lung field; L98.429 Non-pressure chronic ulcer of back with unspecified severity; B95.61 Methicillin susceptible Staphylococcus aureus infection as the cause of diseases classified elsewhere; R53.81 Other malaise; I10 Essential (primary) hypertension